=== PATIENT | male | born 1995 | race Asian ===

== ENCOUNTER 2021-02-14 06:16 | Emergency (ER) | payer OTHER ==
[2021-02-14] MEDS ORDERED: Ketorolac Tromethamine 30 MG/ML VIAL ONE (06:41)
== END 2021-02-14 06:50 | disposition home or self-care (01) ==
LOC: ERS 06:16
DX: M62.838 Other muscle spasm (principal); I10 Essential (primary) hypertension; E11.9 Type 2 diabetes mellitus without complications
CPT/HCPCS: 96372; 99283; J1885